=== PATIENT | female | born 2005 | race Caucasian/White ===

== ENCOUNTER 2024-01-31 06:05 | Inpatient (IN) | payer BC, OTHER ==
[2024-01-31] MEDS ORDERED: LIDOCAINE 0.5% (PF) 5 MG/ML (50 ML SDV) SQ PRN (06:22)
[2024-01-31] MEDS ORDERED: TRANEXAMIC 1,000 MG/100ML-NACL 1,000 MG in EMPTY BAG 1 BAG IV PRN (06:22)
[2024-01-31] MEDS ORDERED: OXYTOCIN 10 UNIT/ML 1 ML VIAL IM PRN (06:22)
[2024-01-31] MEDS ORDERED: METHYLERGONOVINE 0.2 MG/ML 1 ML AMP IM PRN (06:22)
[2024-01-31] MEDS ORDERED: TERBUTALINE 1 MG/ML VIAL SQ PRN (06:22)
[2024-01-31] MEDS ORDERED: miSOPROStoL 200 MCG TAB PO PRN (06:22)
[2024-01-31] MEDS ORDERED: miSOPROStoL 200 MCG TAB RECTAL PRN (06:22)
[2024-01-31] MEDS ORDERED: CARBOPROST TROMETHAMINE 250 MCG/ML 1 ML AMP IM PRN (06:22)
[2024-01-31] MEDS ORDERED: OXYTOCIN 30 UNITS/500 ML NS 30 UNIT in SALINE 1 500ML.BAG IV SCH (06:30)
[2024-01-31] MEDS: OXYTOCIN 30 UNITS/500 ML NS 30 UNIT in SALINE 1 500ML.BAG IV SCH (07:01)
[2024-01-31] MEDS: LACTATED RINGERS 1,000 ML IV SCH (07:03)
[2024-01-31 07:34] LABS: Basophils % (A) 0 %; Eosinophils # (A) 0.1 k/uL (0-0.7); Eosinophils % (A) 1 %; HCT 36.4 % (34.0-46.0); HGB 11.9 gm/dL (11.4-16.0); Lymphocytes # (A) 2.7 k/uL (1.0-4.8); Lymphocytes % (A) 20 %; MCH 29.5 pg (25.0-35.0); MCHC 32.7 g/dL (31.0-37.0); MCV 90.2 fL (80.0-100.0); Mean Platelet Volume 9.4; Monocytes # (A) 0.6 k/uL (0-1.0); Monocytes % (A) 4 %; Neutrophils # (A) 9.5 k/uL (1.3-7.7); Neutrophils % (A) 73 %; Platelet Count 224 k/uL (150-450); RBC 4.04 m/uL (3.80-5.40); RDW 14.2 % (11.5-15.5); WBC 13.1 k/uL (4.0-11.0)
--- NOTE | 2024-01-31 09:33 | P.HPOB ---
History of Present Illness H&P Date: 01/31/24 Chief Complaint: Postdates This is a 18-year-old 1 para 0 at 41-1/7 weeks that presents to labor and delivery for induction secondary to postdates. Patient has been receiving routine care that was complicated initially by intrauterine growth restriction, but this resolved, now measuring small for gestational age. Patient has declined any intervention up to this point. Patient does note good movement and has had reassuring testing. On blood work this patient is a blood type of O+, rubella status immune, hepatitis B surface engine negative, HIV negative, RPR is nonreactive, grew beta strep culture was negative. Review of Systems Constitutional: Denies chills, Denies fatigue, Denies fever Ears, nose, mouth and throat: Denies headache Cardiovascular: Reports leg edema Respiratory: Denies dyspnea Gastrointestinal: Denies nausea, Denies vomiting Genitourinary: Reports Past Medical History Past Medical History: No Reported History History of Any Multi-Drug Resistant Organisms: None Reported Past Anesthesia/Blood Transfusion Reactions: No Reported Reaction Past Psychological History: No Psychological Hx Reported Smoking Status: Never smoker Past Alcohol Use History: None Reported Past Drug Use History: None Reported Medications and Allergies Home Medications Medication Instructions Recorded Confirmed Type Vit No.179/Iron/Folic 1 tab PO DAILY 01/31/24 01/31/24 History [ Tablet] Allergies Allergy/AdvReac Type Severity Reaction Status Date / Time No Known Allergies Allergy Verified 01/31/24 06:19 Exam Osteopathic Statement: *. No significant issues noted on an osteopathic structu ral exam other than those noted in the History and Physical/Consult. Vital Signs Temp Pulse Resp BP Pulse Ox 01/31/24 06:18 96.2 F L 104 H 18 123/72 100 Intake and Output 01/30/24 01/31/24 01/31/24 22:59 06:59 14:59 Other: Weight 107.048 kg Targeted physical exam is performed this date General is well-nourished well- developed female in no acute distress, breathing is nonlabored, heart has a regular rate and rhythm, abdomen is gravid, on cervical exam she is 1/50/- 2 station amniotomy is performed and clear fluid was obtained. heart tones are noted to be category 1 and she is yamileth every 2 minutes, Pitocin is at 6. Results Result Diagrams: 01/31/24 06:46 Abnormal Lab Results - Last 24 Hours (Table) 01/31/24 Range/Units 06:46 WBC 13.1 H (4.0-11.0) k/uL Neutrophils # 9.5 H (1.3-7.7) k/uL Assessment and Plan (1) Post-dates Current Visit: Yes Status: Acute Code(s): O48.0 - POST-TERM SNOMED Code(s): 70191087 Plan: 18-year-old 1 para 0 at 41-1/7 weeks presents for induction of labor secondary to postdates. Patient is admitted and Pitocin induction of labor was begun per hospital protocol. Options for analgesia have been reviewed including nitrous, Nubain, epidural. Patient will consider.
[2024-01-31] MEDS: ACETAMINOPHEN IV (For NPO) 1,000 MG in EMPTY BAG 1 BAG IVPB STA (18:57)
[2024-01-31] MEDS: NALBUPHINE 10 MG/ML (10 ML MDV) IV PRN (21:12)
[2024-02-01] MEDS: AMPICILLIN 2,000 MG in SODIUM CHLORIDE 0.9% 100 ML IVPB ONE (02:51)
[2024-02-01] MEDS: AMPICILLIN 1,000 MG in SODIUM CHLORIDE 0.9% 50 ML IVPB SCH (06:50)
[2024-02-01] MEDS ORDERED: TRANEXAMIC 1,000 MG/100ML-NACL 1,000 MG in EMPTY BAG 1 BAG IV PRN (07:32)
[2024-02-01] MEDS ORDERED: OXYTOCIN 10 UNIT/ML 1 ML VIAL IM PRN (07:32)
[2024-02-01] MEDS ORDERED: miSOPROStoL 200 MCG TAB PO PRN (07:32)
[2024-02-01] MEDS ORDERED: METHYLERGONOVINE 0.2 MG/ML 1 ML AMP IM PRN (07:32)
[2024-02-01] MEDS ORDERED: CARBOPROST TROMETHAMINE 250 MCG/ML 1 ML AMP IM PRN (07:32)
[2024-02-01] MEDS: CITRIC ACID-SODIUM CITRATE 15 ML CUP PO ONE (07:41)
[2024-02-01] MEDS ORDERED: NALOXONE 0.4 MG/ML 1 ML VIAL IV PRN ×2 (08:28→08:40)
[2024-02-01] MEDS ORDERED: ONDANSETRON 4 MG/2 ML VIAL IVP PRN ×2 (08:28→08:40)
[2024-02-01] MEDS ORDERED: diphenhydrAMINE 50 MG/ML 1 ML VIAL IVP PRN ×3 (08:28→08:40)
[2024-02-01] MEDS ORDERED: diphenhydrAMINE 50 MG CAP PO PRN (08:40)
[2024-02-01] MEDS ORDERED: ZOLPIDEM 5 MG TAB PO PRN (08:40)
[2024-02-01] MEDS ORDERED: diphenhydrAMINE 25 MG CAP PO PRN (08:40)
[2024-02-01] MEDS ORDERED: SIMETHICONE 80 MG CHEWABLE PO PRN (08:40)
[2024-02-01] MEDS ORDERED: METOCLOPRAMIDE 5 MG/ML 2 ML VIAL IVP PRN (08:40)
[2024-02-01] MEDS: ACETAMINOPHEN IV (For NPO) 1,000 MG in EMPTY BAG 1 BAG IVPB SCH (11:06)
[2024-02-01] MEDS: ACETAMINOPHEN TAB 500 MG TAB PO SCH (11:10)
[2024-02-01] MEDS: SENNOSIDES-DOCUSATE SODIUM 1 EACH TAB PO SCH (11:11)
[2024-02-01] MEDS: PRENATAL VIT-IRON-FOLIC ACID 1 EACH TABLET PO SCH (11:12)
[2024-02-01] MEDS: IBUPROFEN IV 800 MG in SODIUM CHLORIDE 0.9% 250 ML IV SCH (15:28)
[2024-02-01] MEDS: IBUPROFEN 600 MG TAB PO SCH (15:29)
[2024-02-01] MEDS: LACTATED RINGERS 1,000 ML IV SCH (16:49)
--- NOTE | 2024-02-02 05:46 | P.PN ---
Progress Note - Text Progress Note Date: 02/02/24 Postoperative day 1 status post section under spinal anesthesia and in trathecal Duramorph for postoperative analgesia.The patient is doing well. There are no anesthesia related complications. The patient denies any paresthesia or weakness in the lower extremities. Patient denies any headache. Further management as per the patient primary team.
[2024-02-02 07:35] LABS: Basophils % (A) 0 %; Eosinophils # (A) 0.1 k/uL (0-0.7); Eosinophils % (A) 1 %; HCT 32.1 % (34.0-46.0); HGB 10.2 gm/dL (11.4-16.0); Lymphocytes # (A) 1.5 k/uL (1.0-4.8); Lymphocytes % (A) 10 %; MCH 28.7 pg (25.0-35.0); MCHC 31.6 g/dL (31.0-37.0); MCV 90.7 fL (80.0-100.0); Mean Platelet Volume 9.6; Monocytes # (A) 0.7 k/uL (0-1.0); Monocytes % (A) 5 %; Neutrophils # (A) 11.9 k/uL (1.3-7.7); Neutrophils % (A) 83 %; Platelet Count 173 k/uL (150-450); RBC 3.54 m/uL (3.80-5.40); RDW 14.5 % (11.5-15.5); WBC 14.4 k/uL (4.0-11.0)
--- NOTE | 2024-02-02 08:34 | P.PNOBGPC ---
Subjective - Subjective Principal diagnosis: Postop day 1, primary Interval history: Patient is doing well postoperatively. She is ambulating and voiding without difficulty. She states her pain is well-controlled. Her lochia is normal. She is tolerating a regular diet without nausea or vomiting. She is breast-feeding without difficulty. Patient reports: Reports appetite normal, Reports voiding normally, Reports pain well controlled, Reports ambulating normally [place]: doing well, nursing well Objective - Vital Signs Latest vital signs: Vital Signs Temp Pulse Resp BP Pulse Ox 02/02/24 08:00 98.1 F 92 16 111/71 02/02/24 05:00 17 98 02/02/24 03:00 18 02/02/24 01:00 16 02/01/24 23:55 98.0 F 81 15 99/65 97 02/01/24 23:00 16 02/01/24 21:00 16 96 02/01/24 19:45 98.4 F 99 16 127/78 96 02/01/24 19:00 18 02/01/24 17:00 18 98 02/01/24 16:00 98.1 F 84 18 118/82 02/01/24 15:00 18 02/01/24 13:28 98 02/01/24 13:00 18 02/01/24 11:39 98.3 F 72 18 106/65 02/01/24 11:28 18 02/01/24 10:35 70 18 105/64 02/01/24 10:20 71 18 115/55 02/01/24 10:05 65 18 108/57 02/01/24 09:50 75 18 103/56 02/01/24 09:35 61 18 103/51 02/01/24 09:28 75 18 98 02/01/24 09:20 78 18 109/58 02/01/24 09:05 67 18 108/53 02/01/24 08:50 80 18 110/53 02/01/24 08:35 97.9 F 78 16 95/51 Intake and Output 02/01/24 02/02/24 02/02/24 22:59 06:59 14:59 Intake Total 800 Output Total 1250 500 Balance -450 -500 Intake: Oral 800 Output: Urine 1250 500 Uretheral (Paul) 1000 Other: # Voids 1 1 1 - Exam Extremities: Present: normal, edema Abdomen: Present: normal appearance, soft Incision: Present: normal, dry Uterus: Present: normal, firm - Labs Labs: Abnormal Lab Results - Last 24 Hours (Table) 02/02/24 Range/Units 06:34 WBC 14.4 H (4.0-11.0) k/uL RBC 3.54 L (3.80-5.40) m/uL Hgb 10.2 L (11.4-16.0) gm/dL Hct 32.1 L (34.0-46.0) % Neutrophils # 11.9 H (1.3-7.7) k/uL Assessment and Plan (1) Post-dates Current Visit: Yes Status: Acute Code(s): O48.0 - POST-TERM SN OMED Code(s): 55060747 (2) Arrest of dilation, delivered, current hospitalization Current Visit: Yes Status: Acute Code(s): O62.1 - SECONDARY UTERINE INERTIA SNOMED Code(s): 16805237 (3) S/P primary low transverse Current Visit: Yes Status: Acute Code(s): Z98.891 - HISTORY OF UTERINE SCAR FROM PREVIOUS SURGERY SNOMED Code(s): 777966382 Plan: Patient is doing well postoperatively. Will encourage increased ambulation, and continue routine postoperative care. Anticipate discharge home tomorrow.
[2024-02-03 09:51] VITALS: BP 103/67; PULSE 71; RESP 16; TEMP 97.7
--- NOTE | 2024-02-03 12:30 | P.DS ---
Providers Date of admission: 01/31/24 06:05 Expected date of discharge: 02/03/24 Attending physician: Brenda Schwartz Primary care physician: Stated None - Discharge Diagnosis(es) (1) Post-dates Current Visit: Yes Status: Acute (2) Arrest of dilation, delivered, current hospitalization Current Visit: Yes Status: Acute (3) S/P primary low transverse Current Visit: Yes Status: Acute Hospital Course: 18-year-old 1 now para 1 that presented to labor and delivery on 01/30 for scheduled induction of labor secondary to postdates. Patient was admitted at 41-2/7 weeks. Patient underwent Pitocin induction of labor with amniotomy. Clear fluid was obtained upon amniotomy. Patient had been receiving routine care with myself which had been complicated initially by diagnosis of IUGR, on continued ultrasound and surveillance small for gestational age was diagnosis. For full details in this patient please see the dictated history and physical. Patient progressed through labor never really becoming uncomfortable. Patient progressed through the day and evening with minimal request for pain medication. 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 By the next morning 24 hours after start of induction patient was noted to make no cervical change. Patient was counseled on exam and did request a primary for lack of dilation. Patient was taken back to the operating suite where primary was performed without difficulty, she delivered a viable male at 811, weight of 6 pounds 11 ounces, Apgars of 9 and 9 at 1 and 5 minutes respectively. Patient's postoperative course has been uneventful. In this postoperative day #2 she is ambulating and voiding without difficulty. She is tolerating a regular diet without nausea or vomiting. She states her pain is well-controlled. She would like discharge home when infant is discharged as well. Patient Condition at Discharge: Good Plan - Discharge Summary Discharge Rx Participant: No New Discharge Prescriptions: No Action Vit No.179/Iron/Folic [ Tablet] 1 tab PO DAILY Discharge Medication List Vit No.179/Iron/Folic [ Tablet] 1 tab PO DAILY 01/31/24 [History] Follow up Appointment(s)/Referral(s): Brenda Schwartz DO [Doctor of Osteopathic Medicine] - 03/07/24 10:45 am Patient Instructions/Handouts: (DC), (GEN) Activity/Diet/Wound Care/Special Instructions: No intercourse, or tub baths. No heavy lifting greater than a gallon of milk. No driving for two weeks. Call with any fever, shakes or chills, with any pain not alleviated by over the counter meds, or with any quesions or concerns. [id number] ibuprofen 600 mg or 3 tablets every 6 hours as needed for pain. Discharge Disposition: HOME SELF-CARE
--- NOTE | 2024-02-03 12:32 | P.OP ---
Date of Procedure: 02/01/24 Preoperative Diagnosis: IUP at 41 and 2/7, arrest of dilation after 24 hours Postoperative Diagnosis: Same Procedure(s) Performed: Primary low-transverse section Anesthesia: spinal Surgeon: Brenda Schwartz Pathology: other (Placenta) Condition: stable Disposition: observation Indications for Procedure: 18-year-old 1 para 0 that presented to labor and delivery at 41-1/7 weeks for scheduled induction of labor secondary to postdates. Patient was admitted and Pitocin was begun. Amniotomy was performed and clear fluid was obtained. 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 Patient was noted to be 2 cm. Patient this morning has made no cervical change and it has been 24 hours since induction was begun. Patient is counseled on arrest of dilation and exam. Patient is requesting primary given no cervical change for 24 hours. Discussion was had with patient and significant other decision was made to proceed with primary anesthesia is notified. Operative Findings: Viable male infant delivered at 811, weight of 6 pounds 11 ounces. Normal uterus tubes and ovaries were appreciated. Description of Procedure: The patient was prepped and draped in the usual fashion after spinal anesthesia was noted to be adequate by the anesthesia department. A Pfannenstiel incision was made and extended of the abdominal cavity without difficulty. The bladder peritoneum was elevated and incised and reflected distally. A 2 cm incision was made in the transverse plane of the lower uterine segment to enter the uterus at which time clear fluid was noted. The incision was extended in both directions using the bandage scissors. The head was encountered within the field and delivered up and through the incision where the nose and mouth were thoroughly suctioned. Remainder of the infant was delivered onto the surgical field where the cord was doubly clamped, cut, and the was passed for resuscitative measures with weight and Apgars as noted above. The placenta was delivered manually, intact, and was grossly normal with a grossly normal three-vessel cord. The uterus was exteriorized and the interior cavity of the uterus swept of any remaining placental and membranous fragments with a laparotomy sponge. The margins of the incision were grasped with Allis clamps and the incision closed in 2 layers. First layer was a running locking layer of 0 Vicryl from margin to margin followed by a second layer of imbricating 0 Vicryl from margin to margin. Any small points of bleeding were then made hemostatic with the Bovie. Once hemostasis was achieved, the posterior cul-de-sac was suctioned with a guard and the uterine and ovarian findings are as noted above. The uterus was replaced within the abdominal cavity and the gutters swept of any remaining blood fluid or clot. The incision was again reexamined and hemostasis was noted to be excellent. Any small point of bleeding were made hemostatic with the Bovie. Once hemostasis was achieved the parietal peritoneum was loosely reapproximated. The layer of muscles were examined and made hemostatic with the Bovie. Attention was then turned to the fascia which was closed with 2 running stitches of 0 Vicryl proceeding from the lateral margins to the midpoint. The subcutaneous tissues were irrigated, made hemostatic with the Bovie, and reapproximated with a running stitch of 30 plain catgut. The skin was reapproximated with 4-0 Vicryl. Estimated blood loss for the case was approximately 334 mL. All sponge instrument and needle counts are correct. There were no complications. The patient tolerated the procedure well and proceeded to the recovery room in stable condition. Both mother and are resting comfortably in recovery.
== END 2024-02-03 15:10 | disposition home or self-care (01) | DRG 788 ==
LOC: 4FBP 06:05
PROVIDERS: ADMIT Obstetrics & Gynecology Obstetrics; ATTEND Obstetrics & Gynecology Obstetrics
PROC: 3E033VJ Introduction of Other Hormone into Peripheral Vein, Percutaneous Approach (ICD-10-PCS; principal; 2024-01-31)
PROC: 10907ZC Drainage of Amniotic Fluid, Therapeutic from Products of Conception, Via Natural or Artificial Opening (ICD-10-PCS; principal; 2024-01-31)
PROC: 10D00Z1 Extraction of Products of Conception, Low, Open Approach (ICD-10-PCS; 2024-02-01)
DX: O48.0 Post-term pregnancy (principal); O36.5930 Maternal care for other known or suspected poor fetal growth, third trimester, not applicable or unspecified; O62.0 Primary inadequate contractions; O61.0 Failed medical induction of labor; Z28.310 Unvaccinated for COVID-19; Z3A.41 41 weeks gestation of pregnancy; Z37.0 Single live birth
CPT/HCPCS: 85025; 86850; 86900; 86901; 88307